=== PATIENT | male | born 1950 ===

== ENCOUNTER 2025-01-11 00:51 | Day surgery (SDC) | payer OTHER | END 2025-01-11 23:35 | disposition home or self-care (01) | LOC: WOUND 00:51 | DX: M87.88 Other osteonecrosis, other site (principal); M27.2 Inflammatory conditions of jaws; G47.30 Sleep apnea, unspecified; Z85.818 Personal history of malignant neoplasm of other sites of lip, oral cavity, and pharynx; Z92.3 Personal history of irradiation; Z88.8 Allergy status to other drugs, medicaments and biological substances; Z91.030 Bee allergy status | CPT/HCPCS: G0463 ==

== ENCOUNTER 2025-01-19 03:23 | Day surgery (SDC) | payer OTHER | END 2025-01-19 23:00 | disposition home or self-care (01) | LOC: HBO 03:23 | DX: M27.2 Inflammatory conditions of jaws (principal); Z85.818 Personal history of malignant neoplasm of other sites of lip, oral cavity, and pharynx; Z92.3 Personal history of irradiation | CPT/HCPCS: G0277 ==

== ENCOUNTER 2025-01-20 03:30 | Day surgery (SDC) | payer OTHER | END 2025-01-20 23:00 | disposition home or self-care (01) | LOC: HBO 03:30 | DX: M87.88 Other osteonecrosis, other site (principal); M27.2 Inflammatory conditions of jaws; Z85.818 Personal history of malignant neoplasm of other sites of lip, oral cavity, and pharynx; Z92.3 Personal history of irradiation | CPT/HCPCS: G0277 ==

== ENCOUNTER 2025-01-21 03:57 | Day surgery (SDC) | payer OTHER | END 2025-01-21 23:00 | disposition home or self-care (01) | LOC: HBO 03:57 | DX: M27.2 Inflammatory conditions of jaws (principal); M87.88 Other osteonecrosis, other site; Z85.818 Personal history of malignant neoplasm of other sites of lip, oral cavity, and pharynx; Z92.3 Personal history of irradiation | CPT/HCPCS: G0277 ==

== ENCOUNTER 2025-01-24 01:00 | Day surgery (SDC) | payer OTHER | END 2025-01-24 23:00 | disposition home or self-care (01) | LOC: HBO 01:00 | DX: M27.2 Inflammatory conditions of jaws (principal); M87.88 Other osteonecrosis, other site; Z92.3 Personal history of irradiation; Z85.818 Personal history of malignant neoplasm of other sites of lip, oral cavity, and pharynx | CPT/HCPCS: G0277 ==

== ENCOUNTER 2025-01-27 01:52 | Day surgery (SDC) | payer OTHER | END 2025-01-27 23:00 | disposition home or self-care (01) | LOC: HBO 01:52 | DX: M27.2 Inflammatory conditions of jaws (principal); M87.88 Other osteonecrosis, other site; Z85.818 Personal history of malignant neoplasm of other sites of lip, oral cavity, and pharynx; Z92.3 Personal history of irradiation | CPT/HCPCS: G0277 ==

== ENCOUNTER 2025-01-31 00:45 | Day surgery (SDC) | payer OTHER | END 2025-01-31 23:00 | disposition home or self-care (01) | LOC: HBO 00:45 | DX: M27.2 Inflammatory conditions of jaws (principal); M87.88 Other osteonecrosis, other site; Z85.818 Personal history of malignant neoplasm of other sites of lip, oral cavity, and pharynx; Z92.3 Personal history of irradiation | CPT/HCPCS: G0277 ==

== ENCOUNTER 2025-02-01 04:42 | Day surgery (SDC) | payer OTHER | END 2025-02-01 23:00 | disposition home or self-care (01) | LOC: HBO | DX: M27.2 Inflammatory conditions of jaws (principal); Z85.818 Personal history of malignant neoplasm of other sites of lip, oral cavity, and pharynx; Y84.2 Radiological procedure and radiotherapy as the cause of abnormal reaction of the patient, or of later complication, without mention of misadventure at the time of the procedure | CPT/HCPCS: G0277 ==

== ENCOUNTER 2025-02-08 01:06 | Day surgery (SDC) | payer OTHER | END 2025-02-08 23:00 | disposition home or self-care (01) | LOC: HBO 01:06 | DX: M27.2 Inflammatory conditions of jaws (principal); Z85.818 Personal history of malignant neoplasm of other sites of lip, oral cavity, and pharynx; Z92.3 Personal history of irradiation | CPT/HCPCS: G0277 ==

== ENCOUNTER 2025-02-09 07:41 | Day surgery (SDC) | payer OTHER | END 2025-02-09 23:00 | disposition home or self-care (01) | LOC: HBO 07:41 | DX: M27.2 Inflammatory conditions of jaws (principal); Z85.818 Personal history of malignant neoplasm of other sites of lip, oral cavity, and pharynx; Z92.3 Personal history of irradiation | CPT/HCPCS: G0277 ==

== ENCOUNTER 2025-02-10 02:16 | Day surgery (SDC) | payer OTHER | END 2025-02-10 23:00 | disposition home or self-care (01) | LOC: HBO 02:16 | DX: M27.2 Inflammatory conditions of jaws (principal); M87.88 Other osteonecrosis, other site; Z85.818 Personal history of malignant neoplasm of other sites of lip, oral cavity, and pharynx; Z92.3 Personal history of irradiation | CPT/HCPCS: G0277 ==

== ENCOUNTER 2025-02-11 00:53 | Day surgery (SDC) | payer OTHER | END 2025-02-11 23:00 | disposition home or self-care (01) | LOC: HBO 00:53 | DX: M27.2 Inflammatory conditions of jaws (principal); M87.88 Other osteonecrosis, other site; Z85.818 Personal history of malignant neoplasm of other sites of lip, oral cavity, and pharynx; Z92.3 Personal history of irradiation | CPT/HCPCS: G0277 ==

== ENCOUNTER 2025-02-15 03:24 | Day surgery (SDC) | payer OTHER | END 2025-02-15 23:00 | disposition home or self-care (01) | LOC: HBO 03:24 | DX: M27.2 Inflammatory conditions of jaws (principal); Z85.818 Personal history of malignant neoplasm of other sites of lip, oral cavity, and pharynx; Z92.3 Personal history of irradiation | CPT/HCPCS: G0277 ==

== ENCOUNTER 2025-02-17 03:26 | Day surgery (SDC) | payer OTHER | END 2025-02-17 23:18 | disposition home or self-care (01) | LOC: HBO 03:26 | DX: M27.2 Inflammatory conditions of jaws (principal); Z85.818 Personal history of malignant neoplasm of other sites of lip, oral cavity, and pharynx; Z92.3 Personal history of irradiation | CPT/HCPCS: G0277 ==

== ENCOUNTER 2025-02-18 03:18 | Day surgery (SDC) | payer OTHER | END 2025-02-18 23:44 | disposition home or self-care (01) | LOC: WOUND 03:18 | DX: M87.88 Other osteonecrosis, other site (principal); M27.2 Inflammatory conditions of jaws; Z85.818 Personal history of malignant neoplasm of other sites of lip, oral cavity, and pharynx; Z92.3 Personal history of irradiation | CPT/HCPCS: G0463 ==

== ENCOUNTER 2025-02-18 03:23 | Day surgery (SDC) | payer OTHER | END 2025-02-18 23:45 | disposition home or self-care (01) | LOC: HBO 03:23 | DX: M27.2 Inflammatory conditions of jaws (principal); M87.88 Other osteonecrosis, other site; Z92.3 Personal history of irradiation; Z85.818 Personal history of malignant neoplasm of other sites of lip, oral cavity, and pharynx | CPT/HCPCS: G0277 ==

== ENCOUNTER 2025-02-22 01:33 | Day surgery (SDC) | payer OTHER | END 2025-02-22 23:00 | disposition home or self-care (01) | LOC: HBO 01:33 | DX: M27.2 Inflammatory conditions of jaws (principal); Z85.818 Personal history of malignant neoplasm of other sites of lip, oral cavity, and pharynx; Z92.3 Personal history of irradiation | CPT/HCPCS: G0277 ==

== ENCOUNTER 2025-02-23 02:26 | Day surgery (SDC) | payer OTHER | END 2025-02-23 23:00 | disposition home or self-care (01) | LOC: HBO 02:26 | DX: M27.2 Inflammatory conditions of jaws (principal); Z85.818 Personal history of malignant neoplasm of other sites of lip, oral cavity, and pharynx; Z92.3 Personal history of irradiation | CPT/HCPCS: G0277 ==

== ENCOUNTER 2025-02-24 00:46 | Day surgery (SDC) | payer OTHER | END 2025-02-24 23:00 | disposition home or self-care (01) | LOC: HBO 00:46 | DX: M87.88 Other osteonecrosis, other site (principal); M27.2 Inflammatory conditions of jaws; Z85.818 Personal history of malignant neoplasm of other sites of lip, oral cavity, and pharynx; Z92.3 Personal history of irradiation | CPT/HCPCS: G0277 ==

== ENCOUNTER 2025-02-25 03:32 | Day surgery (SDC) | payer OTHER | END 2025-02-25 23:00 | disposition home or self-care (01) | LOC: HBO 03:32 | DX: M27.2 Inflammatory conditions of jaws (principal) | CPT/HCPCS: G0277 ==

== ENCOUNTER 2025-02-28 01:24 | Day surgery (SDC) | payer OTHER | END 2025-02-28 23:00 | disposition home or self-care (01) | LOC: HBO 01:24 | DX: M27.2 Inflammatory conditions of jaws (principal); M87.88 Other osteonecrosis, other site; Z92.3 Personal history of irradiation; Z85.818 Personal history of malignant neoplasm of other sites of lip, oral cavity, and pharynx | CPT/HCPCS: G0277 ==

== ENCOUNTER 2025-03-01 04:46 | Day surgery (SDC) | payer OTHER | END 2025-03-01 23:01 | disposition home or self-care (01) | LOC: HBO 04:46 | DX: M27.2 Inflammatory conditions of jaws (principal); M87.88 Other osteonecrosis, other site; Z85.818 Personal history of malignant neoplasm of other sites of lip, oral cavity, and pharynx; Z92.3 Personal history of irradiation | CPT/HCPCS: G0277 ==

== ENCOUNTER 2025-03-07 02:37 | Day surgery (SDC) | payer OTHER | END 2025-03-07 23:00 | disposition home or self-care (01) | LOC: HBO 02:37 | DX: M27.2 Inflammatory conditions of jaws (principal); M87.88 Other osteonecrosis, other site; Z85.818 Personal history of malignant neoplasm of other sites of lip, oral cavity, and pharynx; Z92.3 Personal history of irradiation | CPT/HCPCS: G0277 ==

== ENCOUNTER 2025-03-08 02:17 | Day surgery (SDC) | payer OTHER | END 2025-03-08 23:00 | disposition home or self-care (01) | LOC: HBO 02:17 | DX: M27.2 Inflammatory conditions of jaws (principal); Z85.818 Personal history of malignant neoplasm of other sites of lip, oral cavity, and pharynx; Z92.3 Personal history of irradiation | CPT/HCPCS: G0277 ==

== ENCOUNTER 2025-03-09 02:30 | Day surgery (SDC) | payer OTHER | END 2025-03-09 23:00 | disposition home or self-care (01) | LOC: HBO 02:30 | DX: M27.2 Inflammatory conditions of jaws (principal); M87.88 Other osteonecrosis, other site; Z85.818 Personal history of malignant neoplasm of other sites of lip, oral cavity, and pharynx; Z92.3 Personal history of irradiation | CPT/HCPCS: G0277 ==

== ENCOUNTER 2025-03-09 02:54 | Day surgery (SDC) | payer OTHER | END 2025-03-09 23:00 | disposition home or self-care (01) | LOC: WOUND 02:54 | DX: M27.2 Inflammatory conditions of jaws (principal); M87.88 Other osteonecrosis, other site; H40.9 Unspecified glaucoma; Z92.3 Personal history of irradiation; Z85.818 Personal history of malignant neoplasm of other sites of lip, oral cavity, and pharynx | CPT/HCPCS: G0463 ==